=== PATIENT | male | born 1980 | race Hispanic/Latino ===

== ENCOUNTER 2017-07-18 15:48 | Emergency (ER) | payer SELFPAY ==
[2017-07-18 16:38] VITALS: BP 146/104
[2017-07-18] MEDS ORDERED: NORCO 5/325 PO ONE (19:09)
[2017-07-18] MEDS ORDERED: NORCO 5/325 ONE (19:11)
--- NOTE | 2017-07-18 19:27 | Emergency Department Report ---
Upper Extremity - HPI Chief Complaint: Extremity Injury, Upper Stated Complaint: POSSIBLE BROKEN WRIST Time Seen by Provider: 07/18/17 19:19 Upper Extremity: Right Forearm (pain and ), Right Hand Occurred When: Today Mechanism: Crush (forklift attachment fell on patient right forearm and hand) Severity: moderate (10/10) Symptoms: Yes Pain with Movement, Yes Limited Range of Movement, Yes Numbness, Yes Weakness, Yes Swelling, Yes Bruising/Ecchymosis, No Deformity, No Laceration or Abrasion ED Review of Systems ROS: Stated complaint: POSSIBLE BROKEN WRIST Other details as noted in HPI Comment: All other systems reviewed and negative Constitutional: no symptoms reported Eyes: as per HPI ENT: as per HPI Respiratory: no symptoms reported Cardiovascular: as per HPI Endocrine: no symptoms reported Gastrointestinal: as per HPI Genitourinary: as per HPI Musculoskeletal: as per HPI Psychiatric: as per HPI Hematological/Lymphatic: as per HPI ED Past Medical Hx - Past Medical History Previous Medical History?: No - Surgical History Past Surgical History?: Yes Hx Appendectomy: Yes - Social History Smoking Status: Current Every Day Smoker Substance Use Type: Alcohol - Medications Home Medications: Home Medications Medication Instructions Recorded Confirmed Last Taken Type Acetaminophen/Codeine [Tylenol 1 tab PO Q6H PRN 3 Days #12 tab 07/18/17 Unknown Rx /Codeine # 3 tab] Cyclobenzaprine [Flexeril] 10 mg PO TID PRN #30 tablet 07/18/17 Unknown Rx Naproxen [Naprosyn] 500 mg PO BID PRN 15 Days #30 07/18/17 Unknown Rx tablet Upper Extremity Exam - Exam General: Vital signs noted. No distress. Alert and acting appropriately. Head and Torso: No HEENT Abnormality, No Neck Tenderness, No Chest/Lungs Abnormality, No Abdominal Tenderness, No Back Tenderness Shoulder Exam: Yes Normal Range of Motion in Shoulder, No Shoulder Tenderness, No Clavicle Tenderness, No Shoulder Deformity, No AC Joint Tenderness Arm Exam: No Arm/Humerus Tenderness, No Arm Deformity Elbow: Yes Normal Range of Motion in Elbow, No Elbow Tenderness, No Elbow Deformity Forearm: Yes Forearm Tenderness, Yes Pain with Pronation, No Forearm Deformity, No Pain with Supination Wrist: Yes Wrist Tenderness, No Normal ROM in Wrist (limited ROM with pronation) , No Wrist Deformity, No Snuffbox Tenderness, No Pain with Axial Thumb Compression Hand: Yes Hand Tenderness, No Hand Deformity, No Digit Tenderness, No Normal ROM in Digit(s) (limited ROM with extension of phalanges), No Digit(s) Deformity , No Tendon Dysfunction CMS Exam: Yes Normal Distal Pulses, Yes Normal Capillary Refill, Yes Normal Distal Sensation, No Broken Skin ED Course Vital Signs 07/18/17 16:31 Temperature 97.3 F L Pulse Rate 109 H Respiratory 20 Rate Blood Pressure 146/104 O2 Sat by Pulse 98 Oximetry ED Medical Decision Making - Medical Decision Making Patient presents to the emergency room complaining of right hand/wrist pain. Patient reports at approximately 3:00pm he was at work when his right hand and wrist was smashed by a forklift attachment that weighed 800 lbs. He rates pain 10/10. Patient describes pain as a constant throbbing/burning sensation. Patient unable to identify relieving factor. Aggravating factors include movement and touching of the right hand/wrist. Upon assessment erythema and swelling was noted. Radial pulses 2+, Bilateral Movement strength 5/5, capillary refill 1-2 sec. was limited with pronation. Right hand/wrist x-ray showed no sign of a fracture. [place] 5/325mg given, which provided relief. Vital signs improved . Pulse decreased from 109 to 98. Patrick wrap was applied to right/hand wrist. Discussed symtoms of compartment syndrome. Patient encourged to return to the emergency room immediately if symptoms worsen or do not improve. Patient informed to follow-up with Orthopedics in 2-3 days Critical care attestation.: If time is entered above; I have spent that time in minutes in the direct care of this critically ill patient, excluding procedure time. ED Disposition Clinical Impression: Hand sprain Qualifiers: Encounter type: initial encounter Laterality: right Qualified Code(s): S63.91XA - Sprain of unspecified part of right wrist and hand, initial encounter Contusion of right hand including fingers Qualifiers: Encounter type: initial encounter Qualified Code(s): S60.221A - Contusion of right hand, initial encounter Disposition: - TO HOME OR SELFCARE Is pt being admited?: No Does the pt Need Aspirin: No Condition: Good Instructions: Contusion in Adults (ED), Hand Sprain (ED) Prescriptions: Acetaminophen/Codeine [Tylenol /Codeine # 3 tab] 1 tab PO Q6H PRN 3 Days #12 tab PRN Reason: Pain Cyclobenzaprine [Flexeril] 10 mg PO TID PRN #30 tablet PRN Reason: Muscle Spasm Naproxen [Naprosyn] 500 mg PO BID PRN 15 Days #30 tablet PRN Reason: Pain Referrals: JANET ARCHULETA MD [Staff Physician] - 3-5 Days Forms: Work/School Release Form(ED) Time of Disposition: 20:29
--- NOTE | 2017-07-19 08:54 | XRay Report ---
FINAL REPORT EXAM: XR HAND 2V RT HISTORY: Pain swelling due to injury TECHNIQUE: PA and lateral views of the right hand PRIORS: None. FINDINGS: The exam is limited due to positioning, flexion of the fingers. There is soft tissue swelling over the 5th metacarpal. The osseous mineralization is normal. The joint spaces are normal. There is no evidence of fracture or dislocation. Accessory ossicle is seen adjacent to the ulnar styloid. IMPRESSION: Soft tissue swelling. No evidence of fracture. Limited due to positioning.
--- NOTE | 2017-07-19 08:56 | XRay Report ---
FINAL REPORT EXAM: XR FOREARM RT HISTORY: Pain swelling due to injury TECHNIQUE: Portable AP and lateral views of the right forearm, 4 images. PRIORS: None. FINDINGS: The bones are normal in position and alignment. The osseous mineralization is normal. The joint spaces are normal. There is no evidence of fracture or dislocation. No destructive osseous lesion is identified. There is soft tissue swelling over the 5th metacarpal and distal ulna. There is an accessory ossicle adjacent to the ulnar styloid. Vascular calcifications are seen. IMPRESSION: Soft tissue swelling. No evidence of fracture.
== END 2017-07-18 21:15 | disposition home or self-care (01) ==
LOC: ED 15:48
DX: S63.591A Other specified sprain of right wrist, initial encounter (principal); S60.221A Contusion of right hand, initial encounter; F17.200 Nicotine dependence, unspecified, uncomplicated; W20.8XXA Other cause of strike by thrown, projected or falling object, initial encounter; Y93.89 Activity, other specified; Y92.89 Other specified places as the place of occurrence of the external cause; Y99.8 Other external cause status
CPT/HCPCS: 99283